=== PATIENT | female | born 2000 | race Caucasian/White ===

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

== ENCOUNTER 2019-03-16 18:23 | Emergency (ER) | payer MEDICAID ==
[2019-03-16 18:57] VITALS: BP 122/69
[2019-03-16] MEDS ORDERED: ACETAMINOPHEN 500 MG TAB PO ONE (20:15)
--- NOTE | 2019-03-16 20:46 | XRay Report ---
LEFT HAND 3 VIEWS INDICATION: Pain , injury. COMPARISON: No relevant prior imaging study available. FINDINGS: No acute, displaced fracture or dislocation is seen. No foreign bodies. IMPRESSION: 1. No acute findings. Signer Name: Zachary Velasco MD Signed: 03/16/2019 8:42 PM Workstation Name: [id number]
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
== END 2019-03-16 21:28 | disposition home or self-care (01) ==
LOC: ED 18:23
DX: S60.00XA Contusion of unspecified finger without damage to nail, initial encounter (principal); S66.912A Strain of unspecified muscle, fascia and tendon at wrist and hand level, left hand, initial encounter; Z88.0 Allergy status to penicillin; Z88.1 Allergy status to other antibiotic agents; J45.909 Unspecified asthma, uncomplicated; D57.3 Sickle-cell trait; F17.200 Nicotine dependence, unspecified, uncomplicated; Z79.899 Other long term (current) drug therapy; W22.8XXA Striking against or struck by other objects, initial encounter; Y93.89 Activity, other specified; Y92.89 Other specified places as the place of occurrence of the external cause; Y99.8 Other external cause status

== ENCOUNTER 2021-01-31 14:19 | Emergency (ER) | payer MEDICAID ==
[2021-01-31 15:23] VITALS: BP 123/69
[2021-01-31] MEDS ORDERED: ONDANSETRON 4 MG ODT TAB PO ONE (16:18)
--- NOTE | 2021-01-31 16:23 | Emergency Department Report ---
ED General Adult HPI - General Chief complaint: Medical Clearance Stated complaint: VOMITING/FATIQUE/STD/COVID SX Time Seen by Provider: 01/31/21 16:15 Source: patient, EMS Mode of arrival: Ambulatory Limitations: No Limitations - History of Present Illness Initial comments: pt is a 20 yo female who presents to the ED n/v that began 5 days ago. she stat es she began having diarrhea 2 days ago. she states two days ago she had a fever which resolved. she states she is also having lower abd discomfort. she states for the last three days she has had yellow vaginal discharge. she denies any cough, sore throat, ear pain, hematochezia, melena, hematemesis, vaginal itching, burning, lesions or blisters. she did not get vaccinated COVID 19. she has not been tested for COVID 19. she states she is sexually active with one partner but states that she has concern for STDs. She states her last menstrual cycle was 12/31/2020, she states that she is concerned for but has not taken a test. She has a past medical history of sickle cell trait. She has an allergy to penicillin. - Related Data Home Medications Medication Instructions Recorded Confirmed Last Taken Albuterol 1 inh INHALATION DAILY 10/26/17 11/29/17 1 Week Ago ~11/19/17 Loratadine (Nf) [Claritin] 1 tab PO DAILY 10/26/17 11/29/17 1 Day Ago ~11/25/17 Formula Tablet 1 tab PO DAILY 10/26/17 11/29/17 10/25/17 19:00 Previous Rx's Medication Instructions Recorded Last Taken Type Acetaminophen [Tylenol] 1,000 mg PO Q6HR #30 tablet 06/09/17 Unknown Rx Pnv No.95/Ferrous Fum/Folic AC 1 each PO QDAY #31 tablet 06/09/17 Unknown Rx [ Vitamin Tablet] Cefdinir 300 mg PO BID 10 Days #20 capsule 08/25/18 Unknown Rx HYDROcodone/APAP 5-325 [[place] 1 each PO Q6HR PRN #15 tablet 08/25/18 Unknown Rx 5/325] Promethazine [Phenergan] 25 mg PO Q6HR PRN #20 tab 08/25/18 Unknown Rx Cyclobenzaprine HCl [Flexeril 5 MG 5 mg PO Q8H PRN #12 tablet 03/16/19 Unknown Rx TAB] Ibuprofen [Motrin] 600 mg PO Q8H PRN #20 tablet 03/16/19 Unknown Rx Metoclopramide [Reglan] 10 mg PO Q8HR #30 tab 01/31/21 Unknown Rx metroNIDAZOLE [Flagyl] 500 mg PO BID 7 Days #14 tab 01/31/21 Unknown Rx Allergies Allergy/AdvReac Type Severity Reaction Status Date / Time fluoxetine [From Prozac] AdvReac Dizziness Verified 08/25/18 13:42 Penicillins AdvReac Hives Verified 08/25/18 13:42 ED Review of Systems ROS: Stated complaint: VOMITING/FATIQUE/STD/COVID SX Other details as noted in HPI Comment: All other systems reviewed and negative ED Past Medical Hx - Past Medical History Previous Medical History?: Yes Hx Hypertension: No Hx Congestive Heart Failure: No Hx Diabetes: No Hx Deep Vein Thrombosis: No Hx Renal Disease: No Hx Sickle Cell Disease: No Hx Seizures: No Hx Asthma: Yes Hx COPD: No Hx HIV: No Additional medical history: sickle cell traits - Surgical History Past Surgical History?: Yes Additional Surgical History: Left foot surgery - Social History Smoking Status: Current Every Day Smoker Substance Use Type: Alcohol, Marijuana - Medications Home Medications: Home Medications Medication Instructions Recorded Confirmed Last Taken Type Acetaminophen [Tylenol] 1,000 mg PO Q6HR #30 tablet 06/09/17 11/29/17 Unknown Rx Pnv No.95/Ferrous Fum/Folic AC 1 each PO QDAY #31 tablet 06/09/17 11/29/17 Unknown Rx [ Vitamin Tablet] Albuterol 1 inh INHALATION DAILY 10/26/17 11/29/17 1 Week Ago History ~11/19/17 Loratadine (Nf) [Claritin] 1 tab PO DAILY 10/26/17 11/29/17 1 Day Ago History ~11/25/17 Formula Tablet 1 tab PO DAILY 10/26/17 11/29/17 10/25/17 19:00 History Cefdinir 300 mg PO BID 10 Days #20 capsule 08/25/18 Unknown Rx HYDROcodone/APAP 5-325 [[place] 1 each PO Q6HR PRN #15 tablet 08/25/18 Unknown Rx 5/325] Promethazine [Phenergan] 25 mg PO Q6HR PRN #20 tab 08/25/18 Unknown Rx Cyclobenzaprine HCl [Flexeril 5 MG 5 mg PO Q8H PRN #12 tablet 03/16/19 Unknown Rx TAB] Ibuprofen [Motrin] 600 mg PO Q8H PRN #20 tablet 03/16/19 Unknown Rx Metoclopramide [Reglan] 10 mg PO Q8HR #30 tab 01/31/21 Unknown Rx metroNIDAZOLE [Flagyl] 500 mg PO BID 7 Days #14 tab 01/31/21 Unknown Rx ED Physical Exam - General Limitations: No Limitations General appearance: alert, in no apparent distress - Head Head exam: Present: atraumatic, normocephalic - Eye Eye exam: Present: normal appearance - ENT ENT exam: Present: mucous membranes moist - Respiratory Respiratory exam: Present: normal lung sounds bilaterally. Absent: respiratory distress, wheezes, rales, rhonchi, stridor, chest wall tenderness, accessory muscle use, decreased breath sounds, prolonged expiratory - Cardiovascular Cardiovascular Exam: Present: regular rate, normal rhythm, normal heart sounds. Absent: systolic murmur, diastolic murmur, rubs, gallop - GI/Abdominal GI/Abdominal exam: Present: soft, normal bowel sounds. Absent: distended, tenderness, guarding, rebound, rigid - External exam: Absent: erythema, swelling, lesions, lacerations, ecchymosis, bleeding Speculum exam: Present: vaginal discharge (white), cervical discharge (white), other (director of catering:reny murphy). Absent: erythema, vaginal bleeding, foreign body, tissue, laceration Bi-manual exam: Present: normal bi-manual exam. Absent: cervical motion tendernes, adnexal tenderness, adnexal mass - Neurological Exam Neurological exam: Present: alert, oriented X3 - Psychiatric Psychiatric exam: Present: normal affect, normal mood - Skin Skin exam: Present: warm, dry, intact ED Course Vital Signs 01/31/21 15:17 Temperature 99.3 F Pulse Rate 85 Respiratory 16 Rate Blood Pressure 123/69 O2 Sat by Pulse 100 Oximetry ED Medical Decision Making - Lab Data Result diagrams: 01/31/21 17:01 01/31/21 17:01 Lab Results 01/31/21 01/31/21 01/31/21 Range/Units 17:01 17:01 17:01 WBC 8.7 (4.5-11.0) K/mm3 RBC 4.15 (3.65-5.03) M/mm3 Hgb 13.1 (10.1-14.3) gm/dl Hct 39.0 (30.3-42.9) % MCV 94 (79-97) fl MCH 32 (28-32) pg MCHC 34 (30-34) % RDW 14.7 (13.2-15.2) % Plt Count 324 (140-440) K/mm3 Add Manual Diff Complete Total Counted 100 Seg Neuts % (Manual) 65.0 (40.0-70.0) % Lymphocytes % (Manual) 23.0 (13.4-35.0) % Monocytes % (Manual) 12.0 H (0.0-7.3) % Nucleated RBC % Not Reportable Seg Neutrophils # Man 5.7 (1.8-7.7) K/mm3 Band Neutrophils # 0.0 K/mm3 Lymphocytes # (Manual) 2.0 (1.2-5.4) K/mm3 Abs React Lymphs (Man) 0.0 K/mm3 Monocytes # (Manual) 1.0 H (0.0-0.8) K/mm3 Eosinophils # (Manual) 0.0 (0.0-0.4) K/mm3 Basophils # (Manual) 0.0 (0.0-0.1) K/mm3 Metamyelocytes # 0.0 K/mm3 Myelocytes # 0.0 K/mm3 Promyelocytes # 0.0 K/mm3 Blast Cells # 0.0 K/mm3 WBC Morphology Not Reportable Hypersegmented Neuts Not Reportable Hyposegmented Neuts Not Reportable Hypogranular Neuts Not Reportable Smudge Cells Not Reportable Toxic Granulation Not Reportable Toxic Vacuolation Not Reportable Dohle Bodies Not Reportable Pelger-Huet Anomaly Not Reportable Jose A Rods Not Reportable Platelet Estimate Not Reportable Clumped Platelets Not Reportable Plt Clumps, EDTA Not Reportable Large Platelets Not Reportable Giant Platelets Not Reportable Platelet Satelliting Not Reportable Plt Morphology Comment Not Reportable RBC Morphology Normal Dimorphic RBCs Not Reportable Polychromasia Not Reportable Hypochromasia Not Reportable Poikilocytosis Not Reportable Anisocytosis Not Reportable Microcytosis Not Reportable Macrocytosis Not Reportable Spherocytes Not Reportable Pappenheimer Bodies Not Reportable Sickle Cells Not Reportable Target Cells Not Reportable Tear Drop Cells Not Reportable Ovalocytes Not Reportable Helmet Cells Not Reportable Joyce-Montier Bodies Not Reportable [place] Rings Not Reportable [place] Cells Not Reportable Bite Cells Not Reportable Crenated Cell Not Reportable Elliptocytes Not Reportable Acanthocytes (Spur) Not Reportable Rouleaux Not Reportable Hemoglobin C Crystals Not Reportable Schistocytes Not Reportable Malaria parasites Not Reportable Sachin Bodies Not Reportable Hem Pathologist Commnt No Sodium 132 L (137-145) mmol/L Potassium 4.2 (3.6-5.0) mmol/L Chloride 97.4 L (98-107) mmol/L Carbon Dioxide 25 (22-30) mmol/L Anion Gap 14 mmol/L BUN 8 (7-17) mg/dL Creatinine 0.5 L (0.6-1.2) mg/dL Estimated GFR > 60 ml/min BUN/Creatinine Ratio 16 % Glucose 73 (65-100) mg/dL Calcium 9.5 (8.4-10.2) mg/dL Total Bilirubin 0.50 (0.1-1.2) mg/dL AST 18 (5-40) units/L ALT 13 (7-56) units/L Alkaline Phosphatase 39 (35-129) units/L Total Protein 8.1 (6.3-8.2) g/dL Albumin 4.4 (3.9-5) g/dL Albumin/Globulin Ratio 1.2 % Lipase 28 (13-60) units/L HCG, Quant 16870 H (0-4) mIU/mL Urine Color (Yellow) Urine Turbidity (Clear) Urine pH (5.0-7.0) Ur Specific [place] (1.003-1.030) Urine Protein (Negative) mg/dL Urine Glucose (UA) (Negative) mg/dL Urine Ketones (Negative) mg/dL Urine Blood (Negative) Urine Nitrite (Negative) Urine Bilirubin (Negative) Urine Urobilinogen (<2.0) mg/dL Ur Leukocyte Esterase (Negative) Urine WBC (Auto) (0.0-6.0) /HPF Urine RBC (Auto) (0.0-6.0) /HPF U Epithel Cells (Auto) (0-13.0) /HPF Urine Mucus /HPF Urine HCG, Qual (Negative) 01/31/21 Range/Units Unknown WBC (4.5-11.0) K/mm3 RBC (3.65-5.03) M/mm3 Hgb (10.1-14.3) gm/dl Hct (30.3-42.9) % MCV (79-97) fl MCH (28-32) pg MCHC (30-34) % RDW (13.2-15.2) % Plt Count (140-440) K/mm3 Add Manual Diff Total Counted Seg Neuts % (Manual) (40.0-70.0) % Lymphocytes % (Manual) (13.4-35.0) % Monocytes % (Manual) (0.0-7.3) % Nucleated RBC % Seg Neutrophils # Man (1.8-7.7) K/mm3 Band Neutrophils # K/mm3 Lymphocytes # (Manual) (1.2-5.4) K/mm3 Abs React Lymphs (Man) K/mm3 Monocytes # (Manual) (0.0-0.8) K/mm3 Eosinophils # (Manual) (0.0-0.4) K/mm3 Basophils # (Manual) (0.0-0.1) K/mm3 Metamyelocytes # K/mm3 Myelocytes # K/mm3 Promyelocytes # K/mm3 Blast Cells # K/mm3 WBC Morphology Hypersegmented Neuts Hyposegmented Neuts Hypogranular Neuts Smudge Cells Toxic Granulation Toxic Vacuolation Dohle Bodies Pelger-Huet Anomaly Jose A Rods Platelet Estimate Clumped Platelets Plt Clumps, EDTA Large Platelets Giant Platelets Platelet Satelliting Plt Morphology Comment RBC Morphology Dimorphic RBCs Polychromasia Hypochromasia Poikilocytosis Anisocytosis Microcytosis Macrocytosis Spherocytes Pappenheimer Bodies Sickle Cells Target Cells Tear Drop Cells Ovalocytes Helmet Cells Joyce-Montier Bodies [place] Rings [place] Cells Bite Cells Crenated Cell Elliptocytes Acanthocytes (Spur) Rouleaux Hemoglobin C Crystals Schistocytes Malaria parasites Sachin Bodies Hem Pathologist Commnt Sodium (137-145) mmol/L Potassium (3.6-5.0) mmol/L Chloride (98-107) mmol/L Carbon Dioxide (22-30) mmol/L Anion Gap mmol/L BUN (7-17) mg/dL Creatinine (0.6-1.2) mg/dL Estimated GFR ml/min BUN/Creatinine Ratio % Glucose (65-100) mg/dL Calcium (8.4-10.2) mg/dL Total Bilirubin (0.1-1.2) mg/dL AST (5-40) units/L ALT (7-56) units/L Alkaline Phosphatase (35-129) units/L Total Protein (6.3-8.2) g/dL Albumin (3.9-5) g/dL Albumin/Globulin Ratio % Lipase (13-60) units/L HCG, Quant (0-4) mIU/mL Urine Color Yellow (Yellow) Urine Turbidity Slightly-cloudy (Clear) Urine pH 5.0 (5.0-7.0) Ur Specific [place] 1.017 (1.003-1.030) Urine Protein <15 mg/dl (Negative) mg/dL Urine Glucose (UA) Neg (Negative) mg/dL Urine Ketones 20 (Negative) mg/dL Urine Blood Sm (Negative) Urine Nitrite Neg (Negative) Urine Bilirubin Neg (Negative) Urine Urobilinogen < 2.0 (<2.0) mg/dL Ur Leukocyte Esterase Sm (Negative) Urine WBC (Auto) 1.0 (0.0-6.0) /HPF Urine RBC (Auto) 3.0 (0.0-6.0) /HPF U Epithel Cells (Auto) 13.0 (0-13.0) /HPF Urine Mucus Few /HPF Urine HCG, Qual Positive A (Negative) - Radiology Data Radiology results: report reviewed Ordering Physician: JENNIFER CASTILLO Date of Service: 01/31/21 Procedure(s): US OB <= 14 weeks fetus Accession Number(s): [id number] cc: JENNIFER CASTILLO ULTRASOUND OBSTETRIC INDICATION / CLINICAL INFORMATION: , pain. TECHNIQUE: Transabdominal and Transvaginal. COMPARISON: None available. FINDINGS: GESTATIONAL SAC: Well-defined oval shape and intrauterine in location. Small implantation bleed YOLK SAC: No significant abnormality. EMBRYO/FETUS: No significant abnormality. - [place]-Rump Length = 0.8 cm = 6 weeks, 5 day(s). - Heart Rate, beats per minute (if present) = 123 ADNEXA: No significant abnormality. FREE FLUID: None. ADDITIONAL FINDINGS: None. IMPRESSION: 1. Single, living intrauterine with estimated sonographic age of 6 weeks, 5 day(s). 2. Small implantation bleed Signer Name: Michelet Tse MD Signed: 01/31/2021 7:15 PM Workstation Name: [id number] Transcribed By: TL Dictated By: Michelet Tse MD Electronically Authenticated By: Michelet Tse MD Signed Date/Time: 01/31/211914 DD/ 08 TD/TT: Print - Medical Decision Making pt is a 20 yo female who presents to the ED n/v that began 5 days ago. she states she began having diarrhea 2 days ago. she states two days ago she had a fever which resolved. she states she is also having lower abd discomfort. she states for the last three days she has had yellow vaginal discharge. she denies any cough, sore throat, ear pain, hematochezia, melena, hematemesis, vaginal itching, burning, lesions or blisters. she did not get vaccinated COVID 19. she has not been tested for COVID 19. she states she is sexually active with one partner but states that she has concern for STDs. She states her last menstrual cycle was 12/31/2020, she states that she is concerned for but has not taken a test. She has a past medical history of sickle cell trait. She has an allergy to penicillin. Vitals are normal. No abdominal tenderness on exam, no guarding, no rebound, no rigidity, nor masses, no peritoneal signs. Chaperoned pelvic examination with white vaginal/cervical discharge, no CMT, no adnexal tenderness or masses. Labs with mild dehydration. UA without evidence of UTI. [place] [address]. OB ultrasound: 1. Single, living intrauterine with estimated sonographic age of 6 weeks, 5 day(s). 2. Small implantation bleed wet prep shows evidence of bacterial vaginosis. G/C swab sent, patient states that she would like prophylactic treatment, given ceftriaxone and azithromycin. Patient given medications on the emergency department with improvement of her symptoms and she was able to tolerate p.o. intake. Patient given prescription for medications. Advised patient Please take medication as prescribed. Increase your water intake. Eat a bland liquid diet and slowly advance your diet as tolerated. Please follow-up with the clinic or the health department or to have a full STD panel. Please have any partners tested and treated as well. Follow-up with [facility]. Please take a vitamin [id number]. Return to emergency room for any new or worsening symptoms. Critical care attestation.: If time is entered above; I have spent that time in minutes in the direct care of this critically ill patient, excluding procedure time. ED Disposition Clinical Impression: Nausea vomiting and diarrhea, Vaginal discharge, Bacterial vaginosis Qualifiers: Weeks of gestation: less than 8 weeks Qualified Code(s): Z3A.01 - Less than 8 weeks gestation of Abdominal pain Qualifiers: Abdominal location: lower abdomen, unspecified Qualified Code(s): R10.30 - Lower abdominal pain, unspecified Disposition: HOME / SELF CARE / HOMELESS Is pt being admited?: No Does the pt Need Aspirin: No Condition: Stable Instructions: Abdominal Pain During , [id number], Bacterial Vaginosis, Nausea and Vomiting, Adult, Bacterial Vaginosis (ED) Additional Instructions: Please take medication as prescribed. Increase your water intake. Eat a bland liquid diet and slowly advance your diet as tolerated. Please follow-up with the clinic or the health department or to have a full STD panel. Please have any partners tested and treated as well. Follow-up with [facility]. Please take a vitamin [id number]. Return to emergency room for any new or worsening symptoms. Prescriptions: metroNIDAZOLE [Flagyl] 500 mg PO BID 7 Days #14 tab Metoclopramide [Reglan] 10 mg PO Q8HR #30 tab Referrals: PRIMARY MD DELICIA [Primary Care Provider] - 2-3 Days JUANITA ZAVALA MD [Staff Physician] - 2-3 Days Forms: STI Treatment and Prevention Time of Disposition: 20:47 Print Language: INDONESIAN
[2021-01-31 17:25] LABS: Hemoglobin 13.1 gm/dl (10.1-14.3); Mean Corpuscular HGB Conc 34 % (30-34); Mean Corpuscular Volume 94 fl (79-97); Platelet Count 324 K/mm3 (140-440); Red Blood Count 4.15 M/mm3 (3.65-5.03); Red Cell Distribution Width 14.7 % (13.2-15.2)
[2021-01-31 17:26] LABS: Bilirubin,Urine NEG (Negative); Blood,Urine SM (Negative); Color,Urine Yellow (Yellow); Mucus,Urine FEW /HPF; Protein,Urine <15 mg/dL mg/dL (Negative); Urobilinogen,Urine < 2.0 mg/dL (<2.0)
[2021-01-31 17:27] LABS: HCG Qualitative,Urine Positive (Negative)
[2021-01-31 17:47] LABS: Alanine Aminotransferase 13 units/L (7-56); Albumin 4.4 g/dL (3.9-5); Blood Urea Nitrogen 8 mg/dL (7-17); Calcium 9.5 mg/dL (8.4-10.2); Hemolysis Index 10
[2021-01-31 18:02] LABS: BUN/Creatinine Ratio 16
[2021-01-31 18:23] LABS: RBC Morphology Normal; Total Cells Counted 100
[2021-01-31] MEDS ORDERED: diphenhydrAMINE 50 MG/ML VIAL IV ONE (19:11)
[2021-01-31] MEDS ORDERED: SODIUM CHLORIDE 0.9% 1000 ML 1,000 ML IV ONE (19:11)
[2021-01-31] MEDS ORDERED: AZITHROMYCIN 250 MG TAB PO ONE (19:11)
[2021-01-31] MEDS ORDERED: METOCLOPRAMIDE 10 MG/2 ML INJ IV ONE (19:11)
--- NOTE | 2021-01-31 19:20 | Ultrasound Report ---
ULTRASOUND OBSTETRIC INDICATION / CLINICAL INFORMATION: , pain. TECHNIQUE: Transabdominal and Transvaginal. COMPARISON: None available. FINDINGS: GESTATIONAL SAC: Well-defined oval shape and intrauterine in location. Small implantation bleed YOLK SAC: No significant abnormality. EMBRYO/FETUS: No significant abnormality. - [place]-Rump Length = 0.8 cm = 6 weeks, 5 day(s). - Heart Rate, beats per minute (if present) = 123 ADNEXA: No significant abnormality. FREE FLUID: None. ADDITIONAL FINDINGS: None. IMPRESSION: 1. Single, living intrauterine with estimated sonographic age of 6 weeks, 5 day(s). 2. Small implantation bleed Signer Name: Michelet Tes MD Signed: 01/31/2021 7:15 PM Workstation Name: [id number]
--- NOTE | 2021-01-31 19:20 | Ultrasound Report ---
ULTRASOUND OBSTETRIC INDICATION / CLINICAL INFORMATION: , pain. TECHNIQUE: Transabdominal and Transvaginal. COMPARISON: None available. FINDINGS: GESTATIONAL SAC: Well-defined oval shape and intrauterine in location. Small implantation bleed YOLK SAC: No significant abnormality. EMBRYO/FETUS: No significant abnormality. - [place] Length = 0.8 cm = 6 weeks, 5 day(s). - Heart Rate, beats per minute (if present) = 123 ADNEXA: No significant abnormality. FREE FLUID: None. ADDITIONAL FINDINGS: None. IMPRESSION: 1. Single, living intrauterine with estimated sonographic age of 6 weeks, 5 day(s). 2. Small implantation bleed Signer Name: Michelet Tse MD Signed: 01/31/2021 7:15 PM Workstation Name: [id number]
== END 2021-01-31 22:40 | disposition home or self-care (01) ==
LOC: ED 14:19
DX: O21.9 Vomiting of pregnancy, unspecified (principal); O26.891 Other specified pregnancy related conditions, first trimester; R19.7 Diarrhea, unspecified; Z3A.01 Less than 8 weeks gestation of pregnancy; N77.1 Vaginitis, vulvitis and vulvovaginitis in diseases classified elsewhere; Z88.0 Allergy status to penicillin; N89.8 Other specified noninflammatory disorders of vagina; Z88.8 Allergy status to other drugs, medicaments and biological substances; F17.200 Nicotine dependence, unspecified, uncomplicated; F10.20 Alcohol dependence, uncomplicated; F12.90 Cannabis use, unspecified, uncomplicated
CPT/HCPCS: 36415; 76801; 76817; 80053; 81001; 81025; 83690; 84702; 85007; 85025; 87210; 87591; 96365; 96375; 99285; J0696; J1200; J2765; J7030; Q0162

== ENCOUNTER 2021-02-18 06:21 | Emergency (ER) | payer MEDICAID ==
[2021-02-18 06:33] VITALS: BP 106/57
--- NOTE | 2021-02-18 07:20 | Emergency Department Report ---
Vomiting/Diarrhea - HPI Chief Complaint: Urogenital-Female Stated Complaint: NAUSEA/MORNING SICKNESS KIDNEY PAIN Time Seen by Provider: 02/18/21 07:10 Duration: 1 week Severity: moderate Nausea/Vomiting Severity: Moderate Diarrhea Severity: None Pain Location: Other (Left flank) Pain Severity: Mild Symptoms: Yes Able to Tolerate Fluids, No Watery Diarrhea, No Bloody diarrhea, No Fever, No Recent Unusual Foods, No Recent Untreated Water, No Recent use of Antibiotics, No Family w/ Similar Symptoms, No Contacts w/ Similar Symptoms, No Rash, No Hematuria, No Recent URI Symptoms Other History: This is a 20-year-old -[place] female who presents to the emergency room with vomiting and left flank pain for 1 week. The patient states she is and believed to be 6 weeks . She is not currently followed by [facility]. Last menstrual period was December 29, 2020, G2, . She denies fever, chills, diarrhea, pelvic or abdominal pain, hematuria, urinary frequency, urgency, dysuria, or vaginal discharge. ED Review of Systems ROS: Stated complaint: NAUSEA/MORNING SICKNESS KIDNEY PAIN Other details as noted in HPI Constitutional: denies: chills, fever Respiratory: denies: cough, shortness of breath, wheezing Cardiovascular: denies: chest pain, palpitations Gastrointestinal: vomiting. denies: abdominal pain, nausea, diarrhea Genitourinary: denies: urgency, dysuria, discharge Musculoskeletal: back pain (Left flank). denies: joint swelling, arthralgia Neurological: denies: headache, weakness, paresthesias Psychiatric: denies: anxiety, depression ED Past Medical Hx - Past Medical History Hx Hypertension: No Hx Congestive Heart Failure: No Hx Diabetes: No Hx Deep Vein Thrombosis: No Hx Renal Disease: No Hx Sickle Cell Disease: No Hx Seizures: No Hx Asthma: Yes Hx COPD: No Hx HIV: No Additional medical history: sickle cell traits - Surgical History Additional Surgical History: Left foot surgery - Social History Smoking Status: Current Every Day Smoker Substance Use Type: Alcohol, Marijuana - Medications Home Medications: Home Medications Medication Instructions Recorded Confirmed Last Taken Type Acetaminophen [Tylenol] 1,000 mg PO Q6HR #30 tablet 06/09/17 11/29/17 Unknown Rx Pnv No.95/Ferrous Fum/Folic AC 1 each PO QDAY #31 tablet 06/09/17 11/29/17 Unknown Rx [ Vitamin Tablet] Albuterol 1 inh INHALATION DAILY 10/26/17 11/29/17 1 Week Ago History ~11/19/17 Loratadine (Nf) [Claritin] 1 tab PO DAILY 10/26/17 11/29/17 1 Day Ago History ~11/25/17 Formula Tablet 1 tab PO DAILY 10/26/17 11/29/17 10/25/17 19:00 History Cefdinir 300 mg PO BID 10 Days #20 capsule 08/25/18 Unknown Rx HYDROcodone/APAP 5-325 [[place] 1 each PO Q6HR PRN #15 tablet 08/25/18 Unknown Rx 5/325] Promethazine [Phenergan] 25 mg PO Q6HR PRN #20 tab 08/25/18 Unknown Rx Cyclobenzaprine HCl [Flexeril 5 MG 5 mg PO Q8H PRN #12 tablet 03/16/19 Unknown Rx TAB] Ibuprofen [Motrin] 600 mg PO Q8H PRN #20 tablet 03/16/19 Unknown Rx Metoclopramide [Reglan] 10 mg PO Q8HR #30 tab 01/31/21 Unknown Rx metroNIDAZOLE [Flagyl] 500 mg PO BID 7 Days #14 tab 01/31/21 Unknown Rx Doxylamine Succinate/Vit B6 2 each PO BID #30 tablet. 02/18/21 Unknown Rx [Doxylamine-Pyridoxine 10-10 mg] Shirley Root [Shirley] 250 mg PO QID #30 capsule 02/18/21 Unknown Rx Nitrofurantoin Macrocrystal 100 mg PO BID #20 capsule 02/18/21 Unknown Rx [Nitrofurantoin] Vomiting Diarrhea Exam - Exam General: Vital signs noted. No distress. Alert and acting appropriately. HEENT: Yes Moist Mucous Membranes, No Pharyngeal Erythema, No Pharyngeal Exudates, No Rhinorrhea, No Conjuctival Injection, No Frontal Tenderness, No Maxillary Tenderness Neck: No Adenopathy, No Rigidity Lungs: Yes Clear Lung Sounds, Yes Good Air Exchange, No Wheezes, No Stridor, No Cough, No Nasal Flaring, No Retractions, No Use of Accessory Muscles Heart exam: Regular: Yes, Murmur: No, Tachycardia: No Abdomen: Tenderness: Yes (And left CVA tenderness), Peritoneal Signs: No, Distention: No, Hyperactive Bowel sounds: No Skin exam: Rash: No, Edema: No, Normal turgor: Yes Neurologic: Alert and oriented, no deficits. Musculoskeletal: Unremarkable. ED Course Vital Signs 02/18/21 06:32 Temperature 98.9 F Pulse Rate 98 H Respiratory 16 Rate Blood Pressure 106/57 [Right] O2 Sat by Pulse 99 Oximetry ED Medical Decision Making - Lab Data Result diagrams: 02/18/21 07:15 Vital Signs 02/18/21 06:32 Temperature 98.9 F Pulse Rate 98 H Respiratory 16 Rate Blood Pressure 106/57 [Right] O2 Sat by Pulse 99 Oximetry Lab Results 02/18/21 02/18/21 02/18/21 Range/Units 07:15 07:15 Unknown WBC 9.4 (4.5-11.0) K/mm3 RBC 3.85 (3.65-5.03) M/mm3 Hgb 12.5 (10.1-14.3) gm/dl Hct 36.1 (30.3-42.9) % MCV 94 (79-97) fl MCH 32 (28-32) pg MCHC 35 H (30-34) % RDW 13.8 (13.2-15.2) % Plt Count 272 (140-440) K/mm3 Lymph % (Auto) 23.0 (13.4-35.0) % [place] % (Auto) 6.4 (0.0-7.3) % Eos % (Auto) 0.7 (0.0-4.3) % Baso % (Auto) 0.8 (0.0-1.8) % Lymph # (Auto) 2.2 (1.2-5.4) K/mm3 [place] # (Auto) 0.6 (0.0-0.8) K/mm3 Eos # (Auto) 0.1 (0.0-0.4) K/mm3 Baso # (Auto) 0.1 (0.0-0.1) K/mm3 Seg Neutrophils % 69.1 (40.0-70.0) % Seg Neutrophils # 6.5 (1.8-7.7) K/mm3 HCG, Quant 512063 H (0-4) mIU/mL Urine Color Yellow (Yellow) Urine Turbidity Slightly-cloudy (Clear) Urine pH 7.0 (5.0-7.0) Ur Specific [place] 1.015 (1.003-1.030) Urine Protein <15 mg/dl (Negative) mg/dL Urine Glucose (UA) Neg (Negative) mg/dL Urine Ketones Neg (Negative) mg/dL Urine Blood Sm (Negative) Urine Nitrite Neg (Negative) Urine Bilirubin Neg (Negative) Urine Urobilinogen < 2.0 (<2.0) mg/dL Ur Leukocyte Esterase Lg (Negative) Urine WBC (Auto) 2.0 (0.0-6.0) /HPF Urine RBC (Auto) 18.0 (0.0-6.0) /HPF U Epithel Cells (Auto) 11.0 (0-13.0) /HPF Urine Bacteria (Auto) 1+ (Negative) /HPF Urine Mucus Few /HPF - Radiology Data Radiology results: report reviewed US OB <= 14 weeks fetus INDICATION / CLINICAL INFORMATION: left flank pain, . COMPARISON: 01/31/2021 FINDINGS: Intrauterine gestational sac is noted with pole. [place]-rump length is 2.6 cm, 9 weeks 3 days. heart rate is 177. There is trace fluid noted in the cervix. Very small implantation bleed is again noted. Right ovary is unremarkable. Left ovary is unremarkable. No free fluid is seen in the pelvis. IMPRESSION: 1. Single viable intrauterine with sonographic gestational age of 9 weeks, 3 days by crown-rump length. 2. There is trace fluid in the cervix. Signer Name: Zachary Velasco MD Signed: 02/18/2021 9:48 AM Workstation Name: [id number] - Medical Decision Making This is a 20-year-old female who presents with vomiting and right flank pain for 1 week. Patient is 6 weeks and followed by [facility] in [place]. Last menstrual. December 29, 2020, A0. Vitals are stable. Ultrasound findings of Single viable intrauterine with sonographic gestational age of 9 weeks, 3 days by crown-rump length. There is trace fluid in the cervix. the patient is well-appearing and because of symptoms suspected to be transient. Given history and exam it does not appear is emergent for pancreatitis, DKA, appendicitis, acute abdomen, or small bowel obstruction. After treatment of IV fluids and antiemetics the patient is feeling much better and tolerating fluids well in the ER. Start antibiotics for acute cystitis. There are no signs of dehydration. Instructed to continue vitamins, avoid strong odor foods, start pyridoxine. Follow-up with [facility] in 2 to 3 days. Strict return instructions given. Critical care attestation.: If time is entered above; I have spent that time in minutes in the direct care of this critically ill patient, excluding procedure time. ED Disposition Clinical Impression: Vomiting during , Hyperemesis gravidarum Acute cystitis during Qualifiers: Trimester: first trimester Qualified Code(s): O23.11 - Infections of bladder in , first trimester Disposition: 01 HOME / SELF CARE / HOMELESS Is pt being admited?: No Condition: Stable Instructions: Hyperemesis Gravidarum, Morning Sickness, [id number], and Urinary Tract Infection Prescriptions: Doxylamine Succinate/Vit B6 [Doxylamine-Pyridoxine 10-10 mg] 2 each PO BID #30 tablet.dr [place] Root [Shirley] 250 mg PO QID #30 capsule Nitrofurantoin Macrocrystal [Nitrofurantoin] 100 mg PO BID #20 capsule Referrals: GERARDO BRITT MD [Staff Physician] - 3-5 Days [facility] [Provider Group] - 3-5 Days Forms: Work/School Release Form(ED) Time of Disposition: 08:47
[2021-02-18] MEDS ORDERED: ONDANSETRON 4 MG/2 ML INJ IV ONE (07:21)
[2021-02-18] MEDS ORDERED: SODIUM CHLORIDE 0.9% 1000 ML 1,000 ML IV ONE (07:21)
[2021-02-18 07:25] LABS: Bacteria,Urine 1+ /HPF (Negative); Bilirubin,Urine NEG (Negative); Blood,Urine SM (Negative); Color,Urine Yellow (Yellow); Mucus,Urine FEW /HPF; Protein,Urine <15 mg/dL mg/dL (Negative); Urobilinogen,Urine < 2.0 mg/dL (<2.0)
[2021-02-18 07:32] LABS: Basophils # (Auto) 0.1 K/mm3 (0.0-0.1); Basophils % (Auto) 0.8 % (0.0-1.8); Eosinophils # (Auto) 0.1 K/mm3 (0.0-0.4); Eosinophils % (Auto) 0.7 % (0.0-4.3); Hematocrit 36.1 % (30.3-42.9); Hemoglobin 12.5 gm/dl (10.1-14.3); Lymphocytes # (Auto) 2.2 K/mm3 (1.2-5.4); Mean Corpuscular HGB Conc 35 % (30-34); Mean Corpuscular Volume 94 fl (79-97); Monocytes # (Auto) 0.6 K/mm3 (0.0-0.8); Monocytes % (Auto) 6.4 % (0.0-7.3); Platelet Count 272 K/mm3 (140-440); Red Blood Count 3.85 M/mm3 (3.65-5.03); Red Cell Distribution Width 13.8 % (13.2-15.2)
--- NOTE | 2021-02-18 09:52 | Ultrasound Report ---
US OB <= 14 weeks fetus INDICATION / CLINICAL INFORMATION: left flank pain, . COMPARISON: 01/31/2021 FINDINGS: Intrauterine gestational sac is noted with pole. [place]-rump length is 2.6 cm, 9 weeks 3 days. F etal heart rate is 177. There is trace fluid noted in the cervix. Very small implantation bleed is again noted. Right ovary is unremarkable. Left ovary is unremarkable. No free fluid is seen in the pelvis. IMPRESSION: 1. Single viable intrauterine with sonographic gestational age of 9 weeks, 3 days by crown- rump length. 2. There is trace fluid in the cervix. Signer Name: Zachary Velasco MD Signed: 02/18/2021 9:48 AM Workstation Name: [id number]
== END 2021-02-18 12:20 | disposition home or self-care (01) ==
LOC: ED 06:21
DX: O21.0 Mild hyperemesis gravidarum (principal); O21.8 Other vomiting complicating pregnancy; O23.11 Infections of bladder in pregnancy, first trimester; O99.519 Diseases of the respiratory system complicating pregnancy, unspecified trimester; Z3A.09 9 weeks gestation of pregnancy; J45.909 Unspecified asthma, uncomplicated; D57.3 Sickle-cell trait; Z98.890 Other specified postprocedural states; F17.290 Nicotine dependence, other tobacco product, uncomplicated
CPT/HCPCS: 36415; 76801; 81001; 84702; 85025; 96361; 96374; 99284; J2405; J7030